=== PATIENT | female | born 1980 | race Caucasian/White ===

== ENCOUNTER 2017-10-18 04:26 | Emergency (ER) | payer OTHER ==
[2017-10-18] MEDS: HYDROCODONE/APAP (5/325) TAB PO (07:10)
== END 2017-10-18 07:43 | disposition home or self-care (01) ==
LOC: FTE 04:26
DX: S42.201A Unspecified fracture of upper end of right humerus, initial encounter for closed fracture (principal); E11.9 Type 2 diabetes mellitus without complications; W18.39XA Other fall on same level, initial encounter; Y92.9 Unspecified place or not applicable; Z79.4 Long term (current) use of insulin
CPT/HCPCS: 29105; 73060-RT; 73080-RT; 99284-25

== ENCOUNTER 2017-11-07 13:45 | Observation (INO) | payer OTHER ==
[2017-11-07] MEDS ORDERED: PROPOFOL 100 ML (17:06)
[2017-11-07] MEDS ORDERED: ROPIVACAINE 0.5 % 30 ML VIAL (17:07)
[2017-11-07] MEDS: POLYMYXIN/BACITRACIN 1L IRRIG (17:10)
[2017-11-07] MEDS ORDERED: LABETALOL HCL 20MG INJ (17:39)
[2017-11-07] MEDS ORDERED: CEFAZOLIN 1 GM INJ (17:48)
[2017-11-07] MEDS ORDERED: LIDOCAINE 2% (SDV) 5 ML INJ (17:48)
[2017-11-07] MEDS ORDERED: ROCURONIUM 50 MG INJ (17:48)
[2017-11-07] MEDS ORDERED: VANCOMYCIN 1 GM INJ (19:30)
[2017-11-07] MEDS ORDERED: DEXAMETHASONE 4 MG/ML 1 ML INJ (19:34)
[2017-11-07] MEDS ORDERED: ONDANSETRON 4 MG INJ (19:35)
[2017-11-07] MEDS ORDERED: SUGAMMADEX SODIUM 200 MG/2 ML VIAL IV (19:37)
[2017-11-07] MEDS ORDERED: KETOROLAC 30 MG INJ (19:40)
[2017-11-07] MEDS ORDERED: FENTAnyl 50 MCG/ML VIAL (19:47)
[2017-11-07] MEDS ORDERED: HYDROmorphONE (0.2 MG/ML) 10ML SYG IV ×2 (20:30)
[2017-11-07] MEDS ORDERED: KETOROLAC 30 MG INJ IV (20:30)
[2017-11-07] MEDS ORDERED: LABETALOL HCL 20MG INJ IV (20:30)
[2017-11-07] MEDS ORDERED: INSULIN ASPART [NOVOLOG] 3 ML PEN SC (20:30)
[2017-11-07] MEDS ORDERED: EPHEDrine SULFATE 50 MG/5 ML SYG IV (20:30)
[2017-11-07] MEDS ORDERED: MIDAZOLAM 1 MG/ML 2 ML INJ IV (20:30)
[2017-11-07] MEDS ORDERED: FENTAnyl 50 MCG/ML VIAL IV ×3 (20:30)
[2017-11-07] MEDS ORDERED: METOCLOPRAMIDE 10 MG INJ IV (20:30)
[2017-11-07] MEDS ORDERED: ALBUTEROL 0.083% (NEB) 2.5 MG/3 ML AMP HHN (20:30)
[2017-11-07] MEDS ORDERED: ONDANSETRON 4 MG INJ IV (20:30)
[2017-11-07] MEDS ORDERED: DIPHENHYDRAMINE 50 MG INJ IV (20:30)
[2017-11-07] MEDS ORDERED: MEPERIDINE 25 MG INJ IV (20:30)
[2017-11-07] MEDS ORDERED: hydrALAzine 20 MG INJ IV (20:30)
[2017-11-07] MEDS ORDERED: OXYCODONE/ACETAMINOPHEN (5/325) TAB PO (20:30)
[2017-11-07] MEDS: HYDROmorphONE (0.2 MG/ML) 10ML SYG IV (21:05)
[2017-11-07] MEDS: OXYCODONE/ACETAMINOPHEN (5/325) TAB PO (21:23)
[2017-11-08] MEDS ORDERED: ATENOLOL 25 MG TAB PO
[2017-11-08] MEDS ORDERED: ZOLPIDEM 5 MG TAB PO
[2017-11-08] MEDS ORDERED: ACCU-CHEK XX (02:00)
[2017-11-08] MEDS ORDERED: PANTOPRAZOLE (EC) 40 MG TAB PO (06:00)
[2017-11-08] MEDS ORDERED: INSULIN ASPART [NOVOLOG] 3 ML PEN SC (08:00)
[2017-11-08] MEDS ORDERED: INSULIN GLARGINE HUM REC ANLOG 80 UNIT SQ (21:00)
[2017-11-08] MEDS ORDERED: [UNRECOGNIZED DRUG - OTHER] SQ (21:00)
== END 2017-11-09 22:30 | disposition home or self-care (01) ==
LOC: SDS 13:45 → REC 22:30 → MS2 11-09 17:05 → SDS 13:45 → REC 11-09 17:47 → SDS 20:44 → REC 20:22
PROVIDERS: Orthopaedic Surgery Hand Surgery
DX: S42.301A Unspecified fracture of shaft of humerus, right arm, initial encounter for closed fracture (principal); G56.31 Lesion of radial nerve, right upper limb; X58.XXXA Exposure to other specified factors, initial encounter; Y93.9 Activity, unspecified; Y99.9 Unspecified external cause status; Y92.9 Unspecified place or not applicable
CPT/HCPCS: 24515; 73060-RT; 82962; 99217

== ENCOUNTER 2017-11-19 23:05 | Inpatient (IN) | payer OTHER ==
[2017-11-20] MEDS: ONDANSETRON 4 MG INJ IV (02:21)
[2017-11-20] MEDS: HYDROmorphONE 1 MG/ML SYG IV (02:22)
[2017-11-20] MEDS: SOD CHLORIDE 0.9% 1,000 ML IV ×3 (02:26→07:33)
[2017-11-20 02:40] LABS: ADD MAN DIFF? NO
[2017-11-20 02:42] LABS: WHITE BLOOD COUNT 6.8 10^3/ul (4.8-10.8)
[2017-11-20 02:42] LABS: BASOPHILS % 0.3 % (0.0-2.0); EOSINOPHILS # 0.2 10^3/ul (0.0-0.5); EOSINOPHILS % 2.2 % (0.0-7.0); HEMATOCRIT 34.4 % (37.0-47.0); HEMOGLOBIN 12.8 g/dl (12.0-16.0); LYMPHOCYTES # 2.8 10^3/ul (0.8-2.9); LYMPHOCYTES % 40.8 % (15.0-51.0); MEAN CORPUSCULAR HEMOGLOBIN 32.5 pg (29.0-33.0); MEAN CORPUSCULAR HGB CONC 37.2 g/dl (32.0-37.0); MEAN CORPUSCULAR VOLUME 87.3 fl (82.0-101.0); MEAN PLATELET VOLUME 9.3 fl (7.4-10.4); MONOCYTE # 0.3 10^3/ul (0.3-0.9); NEUTROPHIL # 3.6 10^3/ul (1.6-7.5); NEUTROPHILS % 52.1 % (39.0-77.0); PLATELET COUNT 307 10^3/UL (140-415); RED BLOOD COUNT 3.94 10^6/ul (4.20-5.40); RED CELL DISTRIBUTION WIDTH 14.5 % (11.5-14.5)
[2017-11-20 03:01] LABS: ALANINE AMINOTRANSFERASE 21 IU/L (13-69); ALBUMIN 3.6 g/dl (3.3-4.9); ALBUMIN/GLOBULIN RATIO 0.92; ALKALINE PHOSPHATASE 288 IU/L (42-121); ANION GAP 21 (8-16); ASPARTATE AMINO TRANSFERASE 23 IU/L (15-46); BILIRUBIN,INDIRECT 0.2 mg/dl (0-1.1); BILIRUBIN,TOTAL 0.2 mg/dl (0.2-1.3); BLOOD UREA NITROGEN 16 mg/dl (7-20); CALCIUM 9.2 mg/dl (8.4-10.2); CARBON DIOXIDE 20 mmol/L (21-31); CHLORIDE 100 mmol/L (97-110); CREATININE 0.54 mg/dl (0.44-1.00); LIPASE 37 U/L (23-300); POTASSIUM 4.6 mmol/L (3.5-5.1); SODIUM 136 mmol/L (135-144); TOTAL PROTEIN 7.5 g/dl (6.1-8.1)
[2017-11-20 03:10] LABS: LACTIC ACID 3.5 mmol/L (0.5-2.0)
[2017-11-20 03:10] LABS: GLUCOSE 422 mg/dl (70-220)
[2017-11-20 03:19] LABS: ADD UMIC YES; UR ASCORBIC ACID NEGATIVE (NEGATIVE); UR BACTERIA FEW /HPF (NONE SEEN); UR BILIRUBIN (Dip) NEGATIVE (NEGATIVE); UR BLOOD (Dip) 1+ mg/dL (NEGATIVE); UR CLARITY CLEAR (CLEAR); UR COLOR STRAW (YELLOW); UR GLUCOSE (Dip) 3+ mg/dL (NEGATIVE); UR KETONES (Dip) NEGATIVE (NEGATIVE); UR LEUKOCYTE ESTERASE (Dip) NEGATIVE Leu/ul (NEGATIVE); UR NITRITE (Dip) NEGATIVE (NEGATIVE); UR RBC 1 /HPF (0-5); UR SQUAMOUS EPITHELIAL CELL FEW /HPF (FEW); UR TOTAL PROTEIN (Dip) 2+ mg/dl (NEGATIVE); UR UROBILINOGEN (Dip) NEGATIVE (NEGATIVE); UR WBC 1 /HPF (0-5)
[2017-11-20] MEDS: SOD CHLORIDE 0.9% IV (03:49)
[2017-11-20 04:05] LABS: TROPONIN-I < 0.012 ng/ml (0.00-0.12)
[2017-11-20] MEDS: HYDROmorphONE 0.5 MG/0.5 ML SYG IV ×3 (04:12→13:50)
[2017-11-20 04:29] LABS: INR 0.95; PROTIME 12.8 Sec (11.9-14.9)
[2017-11-20 04:57] LABS: PARTIAL THROMBOPLASTIN TIME 28.3 Sec (25.0-35.0)
[2017-11-20 05:20] LABS: LACTIC ACID 3.1 mmol/L (0.5-2.0)
[2017-11-20] MEDS: VANCOMYCIN 1 GM (PMX) 250 ML IVPB (05:30)
[2017-11-20] MEDS ORDERED: VANCOMYCIN IV PER PHARMACY XX (06:00)
[2017-11-20] MEDS ORDERED: ACETAMINOPHEN 325 MG TAB PO (06:00)
[2017-11-20] MEDS ORDERED: ZOLPIDEM 5 MG TAB PO (06:00)
[2017-11-20] MEDS ORDERED: ONDANSETRON 4 MG INJ IV (06:00)
[2017-11-20] MEDS: PIPER-TAZO 3.375 GM IV (PMX) 100 ML IVPB ×3 (06:00→21:04)
[2017-11-20] MEDS ORDERED: HYDROCODONE/APAP (5/325) TAB PO (06:00)
[2017-11-20] MEDS ORDERED: NACL 0.9% 3 ML SYG IV (06:00)
[2017-11-20] MEDS ORDERED: morphine 4 MG/ML VIAL IV (06:00)
[2017-11-20] MEDS ORDERED: DEXTROSE 50% 50 ML SYRINGE IV ×2 (06:30)
[2017-11-20] MEDS ORDERED: GLUCOSE GEL 15 GRAM TUBE PO ×2 (06:30)
[2017-11-20] MEDS ORDERED: GLUCAGON 1 MG INJ IM (06:30)
[2017-11-20] MEDS ORDERED: GLUCOSE GEL 15 GRAM TUBE BUCCAL (06:30)
[2017-11-20] MEDS: INSULIN ASPART [NOVOLOG] 3 ML PEN SC ×6 (06:35→21:07)
[2017-11-20] MEDS ORDERED: LIDOCAINE 4% CR (06:53)
[2017-11-20] MEDS: LIDOCAINE 4% CR TOP (07:00)
[2017-11-20] MEDS: CEFEPIME 2GM/50 ML (PMX) 50 ML IVPB (07:32)
[2017-11-20] MEDS ORDERED: [UNRECOGNIZED DRUG - REMARK] XX (08:00)
[2017-11-20 08:25] LABS: LACTIC ACID 2.5 mmol/L (0.5-2.0)
[2017-11-20] MEDS: DIPHENHYDRAMINE 50 MG INJ IV (08:35)
[2017-11-20 12:20] LABS: ANION GAP 12 (8-16); BLOOD UREA NITROGEN 14 mg/dl (7-20); CALCIUM 8.9 mg/dl (8.4-10.2); CARBON DIOXIDE 25 mmol/L (21-31); CHLORIDE 104 mmol/L (97-110); GLUCOSE 356 mg/dl (70-220); POTASSIUM 4.5 mmol/L (3.5-5.1); SODIUM 136 mmol/L (135-144)
[2017-11-20] MEDS: VANCOMYCIN 750 MG in DEXTROSE 5% 150 ML IVPB ×2 (12:23→21:44)
[2017-11-20] MEDS: PANTOPRAZOLE (EC) 40 MG TAB PO (12:24)
[2017-11-20] MEDS: ATENOLOL 25 MG TAB PO (13:50)
[2017-11-20] MEDS: METHADONE 10 MG TAB PO ×2 (17:44→22:00)
[2017-11-20] MEDS ORDERED: INSULIN GLARGINE HUM REC ANLOG 80 UNIT SQ (21:00)
[2017-11-20] MEDS ORDERED: [UNRECOGNIZED DRUG - OTHER] SQ (21:00)
[2017-11-20] MEDS: HYDROmorphONE 2 MG TAB PO (21:03)
[2017-11-20] MEDS: INSULIN GLARGINE [LANtus] 3 ML PEN SC (21:08)
[2017-11-21] MEDS: HYDROCODONE/APAP (5/325) TAB PO ×2 (01:18→09:51)
[2017-11-21] MEDS: INSULIN ASPART [NOVOLOG] 3 ML PEN SC ×4 (01:23→09:23)
[2017-11-21] MEDS: ACCU-CHEK XX (02:00)
[2017-11-21] MEDS: PIPER-TAZO 3.375 GM IV (PMX) 100 ML IVPB ×2 (03:05→09:17)
[2017-11-21] MEDS: HYDROmorphONE 2 MG TAB PO (03:05)
[2017-11-21 03:52] LABS: VANCOMYCIN,TROUGH 12.2 ug/ml (10.0-20.0)
[2017-11-21] MEDS: VANCOMYCIN 750 MG in DEXTROSE 5% 150 ML IVPB (05:07)
[2017-11-21] MEDS: METHADONE 10 MG TAB PO (05:13)
[2017-11-21 05:56] LABS: ADD MAN DIFF? NO
[2017-11-21 05:58] LABS: BASOPHILS % 0.4 % (0.0-2.0); EOSINOPHILS # 0.2 10^3/ul (0.0-0.5); EOSINOPHILS % 2.9 % (0.0-7.0); HEMATOCRIT 30.8 % (37.0-47.0); HEMOGLOBIN 10.7 g/dl (12.0-16.0); LYMPHOCYTES # 2.1 10^3/ul (0.8-2.9); LYMPHOCYTES % 41.8 % (15.0-51.0); MEAN CORPUSCULAR HEMOGLOBIN 31.2 pg (29.0-33.0); MEAN CORPUSCULAR HGB CONC 34.7 g/dl (32.0-37.0); MEAN CORPUSCULAR VOLUME 89.8 fl (82.0-101.0); MEAN PLATELET VOLUME 9.2 fl (7.4-10.4); MONOCYTE # 0.3 10^3/ul (0.3-0.9); MONOCYTES % 4.9 % (0.0-11.0); NEUTROPHIL # 2.5 10^3/ul (1.6-7.5); NEUTROPHILS % 49.6 % (39.0-77.0); PLATELET COUNT 239 10^3/UL (140-415); RED BLOOD COUNT 3.43 10^6/ul (4.20-5.40); RED CELL DISTRIBUTION WIDTH 14.5 % (11.5-14.5)
[2017-11-21 05:58] LABS: WHITE BLOOD COUNT 5.1 10^3/ul (4.8-10.8)
[2017-11-21 06:52] LABS: ALANINE AMINOTRANSFERASE 22 IU/L (13-69); ALBUMIN/GLOBULIN RATIO 0.83; ALKALINE PHOSPHATASE 191 IU/L (42-121); ANION GAP 12 (8-16); ASPARTATE AMINO TRANSFERASE 20 IU/L (15-46); BILIRUBIN,INDIRECT 0.2 mg/dl (0-1.1); BILIRUBIN,TOTAL 0.2 mg/dl (0.2-1.3); BLOOD UREA NITROGEN 14 mg/dl (7-20); CALCIUM 8.8 mg/dl (8.4-10.2); CARBON DIOXIDE 24 mmol/L (21-31); CHLORIDE 103 mmol/L (97-110); CREATININE 0.58 mg/dl (0.44-1.00); GLUCOSE 148 mg/dl (70-220); SODIUM 135 mmol/L (135-144); TOTAL PROTEIN 6.6 g/dl (6.1-8.1)
[2017-11-21] MEDS: PANTOPRAZOLE (EC) 40 MG TAB PO (09:17)
[2017-11-21] MEDS ORDERED: INSULIN ASPART [NOVOLOG] 3 ML PEN SC (11:30)
== END 2017-11-21 12:02 | disposition home or self-care (01) | DRG 862 ==
LOC: FTE 23:05 → MS3 11-20 05:24 → PP2 11-20 17:16
PROVIDERS: Internal Medicine
DX: T81.4XXA Infection following a procedure, initial encounter (principal); R65.20 Severe sepsis without septic shock; M79.601 Pain in right arm; Z76.5 Malingerer [conscious simulation]; E11.65 Type 2 diabetes mellitus with hyperglycemia; Z79.4 Long term (current) use of insulin
CPT/HCPCS: 36415; 71045; 73060-RT; 80048; 80053; 80202; 81001; 82962; 83605; 83690; 84484; 85025; 85610; 85730; 87040; 87086; 93005; 96361; 96374; 96375; 96376; 99285-25

== ENCOUNTER 2018-11-14 02:46 | Emergency (ER) | payer OTHER ==
[2018-11-14 04:27] LABS: ADD UMIC YES; UR ASCORBIC ACID NEGATIVE (NEGATIVE); UR BILIRUBIN (Dip) NEGATIVE (NEGATIVE); UR BLOOD (Dip) NEGATIVE (NEGATIVE); UR CLARITY CLEAR (CLEAR); UR COLOR STRAW (YELLOW); UR GLUCOSE (Dip) 3+ mg/dL (NEGATIVE); UR KETONES (Dip) NEGATIVE (NEGATIVE); UR LEUKOCYTE ESTERASE (Dip) NEGATIVE Leu/ul (NEGATIVE); UR NITRITE (Dip) NEGATIVE (NEGATIVE); UR RBC 0 /HPF (0-5); UR SPECIFIC GRAVITY (Dip) 1.017 (1.003-1.030); UR TOTAL PROTEIN (Dip) 2+ mg/dl (NEGATIVE); UR UROBILINOGEN (Dip) NEGATIVE (NEGATIVE); UR WBC 0 /HPF (0-5)
[2018-11-14 04:50] LABS: ADD MAN DIFF? NO
[2018-11-14 04:52] LABS: BASOPHILS % 0.3 % (0.0-2.0); EOSINOPHILS # 0.3 10^3/ul (0.0-0.5); EOSINOPHILS % 3.2 % (0.0-7.0); HEMATOCRIT 37.8 % (37.0-47.0); HEMOGLOBIN 13.2 g/dl (12.0-16.0); LYMPHOCYTES # 3.7 10^3/ul (0.8-2.9); LYMPHOCYTES % 41.9 % (15.0-51.0); MEAN CORPUSCULAR HEMOGLOBIN 29.7 pg (29.0-33.0); MEAN CORPUSCULAR HGB CONC 34.9 g/dl (32.0-37.0); MEAN CORPUSCULAR VOLUME 85.1 fl (82.0-101.0); MEAN PLATELET VOLUME 9.7 fl (7.4-10.4); MONOCYTE # 0.4 10^3/ul (0.3-0.9); MONOCYTES % 4.2 % (0.0-11.0); NEUTROPHIL # 4.4 10^3/ul (1.6-7.5); NEUTROPHILS % 49.2 % (39.0-77.0); PLATELET COUNT 200 10^3/UL (140-415); RED BLOOD COUNT 4.44 10^6/ul (4.20-5.40); RED CELL DISTRIBUTION WIDTH 13.1 % (11.5-14.5)
[2018-11-14 04:52] LABS: WHITE BLOOD COUNT 8.8 10^3/ul (4.8-10.8)
[2018-11-14] MEDS: SOD CHLORIDE 0.9% 1,000 ML IV (05:00)
[2018-11-14] MEDS: DIPHENHYDRAMINE 50 MG INJ IV ×2 (05:01→06:42)
[2018-11-14] MEDS: HYDROmorphONE 2 MG/ML SYG IV ×2 (05:01→06:41)
[2018-11-14] MEDS: ONDANSETRON 4 MG INJ IV (05:01)
[2018-11-14 05:21] LABS: ALANINE AMINOTRANSFERASE 38 IU/L (13-69); ALBUMIN 3.5 g/dl (3.3-4.9); ALBUMIN/GLOBULIN RATIO 1.25; ALKALINE PHOSPHATASE 119 IU/L (42-121); AMYLASE 71 U/L (11-123); ANION GAP 11 (5-13); ASPARTATE AMINO TRANSFERASE 29 IU/L (15-46); BILIRUBIN,INDIRECT 0.2 mg/dl (0-1.1); BILIRUBIN,TOTAL 0.2 mg/dl (0.2-1.3); BLOOD UREA NITROGEN 24 mg/dl (7-20); CALCIUM 8.9 mg/dl (8.4-10.2); CARBON DIOXIDE 23 mmol/L (21-31); CHLORIDE 103 mmol/L (97-110); CREATININE 0.52 mg/dl (0.44-1.00); Estimated GFR > 60 mL/min (>60); GLUCOSE 272 mg/dl (70-220); LIPASE 97 U/L (23-300); POTASSIUM 4.2 mmol/L (3.5-5.1); SODIUM 137 mmol/L (135-144); TOTAL PROTEIN 6.3 g/dl (6.1-8.1)
[2018-11-14 06:14] LABS: INR 0.82; PROTIME 11.4 Sec (11.9-14.9); PT RATIO 0.9
[2018-11-14 06:15] LABS: PARTIAL THROMBOPLASTIN TIME 24.5 Sec (23.0-35.0)
[2018-11-14 06:29] LABS: TROPONIN-I < 0.012 ng/ml (0.000-0.120)
[2018-11-14] MEDS: IOHEXOL 100 ML (08:48)
[2018-11-14] MEDS: SOD CHLORIDE 0.9% 100 ML (08:48)
[2018-11-14] MEDS: KETOROLAC 30 MG INJ IV (09:01)
== END 2018-11-14 09:42 | disposition home or self-care (01) ==
LOC: FTE 09:42
DX: R10.9 Unspecified abdominal pain (principal); E11.9 Type 2 diabetes mellitus without complications; Z79.4 Long term (current) use of insulin
CPT/HCPCS: 71046; 71275; 74176; 76856; 80053; 81001; 81025; 82150; 83690; 84484; 85025; 85610; 85730; 87400; 93005; 96361; 96374; 96375; 96376; 99285-25

== ENCOUNTER 2019-02-25 04:53 | Inpatient (IN) | payer OTHER ==
[2019-02-25 05:25] LABS: ADD MAN DIFF? NO
[2019-02-25] MEDS: SOD CHLORIDE 0.9% 860 ML IV (05:25)
[2019-02-25 05:28] LABS: WHITE BLOOD COUNT 16.4 10^3/ul (4.8-10.8)
[2019-02-25 05:28] LABS: BASOPHILS % 0.2 % (0.0-2.0); EOSINOPHILS % 0.2 % (0.0-7.0); HEMATOCRIT 43.8 % (37.0-47.0); HEMOGLOBIN 15.7 g/dl (12.0-16.0); LYMPHOCYTES # 4.3 10^3/ul (0.8-2.9); LYMPHOCYTES % 26.3 % (15.0-51.0); MEAN CORPUSCULAR HEMOGLOBIN 31.7 pg (29.0-33.0); MEAN CORPUSCULAR HGB CONC 35.8 g/dl (32.0-37.0); MEAN CORPUSCULAR VOLUME 88.3 fl (82.0-101.0); MEAN PLATELET VOLUME 9.2 fl (7.4-10.4); MONOCYTE # 0.7 10^3/ul (0.3-0.9); MONOCYTES % 4.2 % (0.0-11.0); NEUTROPHIL # 11.1 10^3/ul (1.6-7.5); NEUTROPHILS % 68.1 % (39.0-77.0); PLATELET COUNT 403 10^3/UL (140-415); RED BLOOD COUNT 4.96 10^6/ul (4.20-5.40); RED CELL DISTRIBUTION WIDTH 13.6 % (11.5-14.5)
[2019-02-25] MEDS: HYDROmorphONE 1 MG/ML SYG IV (05:31)
[2019-02-25] MEDS: ONDANSETRON 4 MG INJ IV ×4 (05:31→21:42)
[2019-02-25 05:48] LABS: ALANINE AMINOTRANSFERASE 25 IU/L (13-69); ALBUMIN 3.3 g/dl (3.3-4.9); ALBUMIN/GLOBULIN RATIO 0.78; ALKALINE PHOSPHATASE 159 IU/L (42-121); ASPARTATE AMINO TRANSFERASE 22 IU/L (15-46); BILIRUBIN,INDIRECT 0.4 mg/dl (0-1.1); BILIRUBIN,TOTAL 0.4 mg/dl (0.2-1.3); BLOOD UREA NITROGEN 24 mg/dl (7-20); CALCIUM 8.2 mg/dl (8.4-10.2); CHLORIDE 100 mmol/L (97-110); Estimated GFR 56 mL/min (>60); MAGNESIUM 1.9 mg/dl (1.7-2.5); PHOSPHORUS 6.8 mg/dl (2.5-4.9); POTASSIUM 4.4 mmol/L (3.5-5.1); SODIUM 133 mmol/L (135-144); TOTAL PROTEIN 7.5 g/dl (6.1-8.1)
[2019-02-25 05:57] LABS: ANION GAP 28 (5-13)
[2019-02-25 05:58] LABS: CARBON DIOXIDE < 5 mmol/L (21-31); GLUCOSE 624 mg/dl (70-220)
[2019-02-25] MEDS ORDERED: SOD CHLORIDE 0.9% 1,000 ML IV (06:01)
[2019-02-25] MEDS ORDERED: NS + KCL 40 MEQ 1,000 ML IV (06:01)
[2019-02-25] MEDS ORDERED: D10/0.45% NACL + KCL 40 MEQ 1,000 ML IV (06:01)
[2019-02-25 06:07] LABS: MODE NASAL CANNULA; MetHgb Venous 0.1 %; Sample Type Blood venous; Site VENOUS LINE; Venous COHb 0.3 %; Venous Fraction OxyHgb 58.1 %; Venous Oxygen Sat 58.3 mmHG (55.0-75.0); Venous Total Hemglobin 13.4 g/dl
[2019-02-25] MEDS: LACTATED RINGER'S 860 ML IV (06:11)
[2019-02-25 06:15] LABS: ADD UMIC YES; UR ASCORBIC ACID NEGATIVE (NEGATIVE); UR BILIRUBIN (Dip) NEGATIVE (NEGATIVE); UR BLOOD (Dip) 1+ mg/dL (NEGATIVE); UR CLARITY CLEAR (CLEAR); UR COLOR COLORLESS (YELLOW); UR GLUCOSE (Dip) 3+ mg/dL (NEGATIVE); UR KETONES (Dip) 2+ mg/dL (NEGATIVE); UR LEUKOCYTE ESTERASE (Dip) NEGATIVE Leu/ul (NEGATIVE); UR NITRITE (Dip) NEGATIVE (NEGATIVE); UR RBC 1 /HPF (0-5); UR SPECIFIC GRAVITY (Dip) 1.017 (1.003-1.030); UR TOTAL PROTEIN (Dip) 1+ mg/dl (NEGATIVE); UR UROBILINOGEN (Dip) NEGATIVE (NEGATIVE); UR WBC 1 /HPF (0-5)
[2019-02-25] MEDS ORDERED: DEXTROSE 50% 50 ML SYRINGE IV ×4 (06:30→20:00)
[2019-02-25] MEDS ORDERED: LIDOCAINE 1% (MDV) 20 ML INJ (06:43)
[2019-02-25] MEDS ORDERED: LIDOCAINE 1% (MPF) 30 ML INJ INJ (07:00)
[2019-02-25] MEDS: HYDROmorphONE 2 MG/ML SYG IV (07:16)
[2019-02-25] MEDS ORDERED: PANTOPRAZOLE 40 MG INJ IV (07:30)
[2019-02-25] MEDS ORDERED: ACETAMINOPHEN 650MG/20.3ML CUP PO (07:30)
[2019-02-25] MEDS: INSULIN REGULAR, HUMAN 100 UNIT in SOD CHLORIDE 0.9% 100 ML IV ×2 (07:51→19:00)
[2019-02-25] MEDS: NS + KCL 30 MEQ 1,000 ML IV ×3 (07:53→20:09)
[2019-02-25] MEDS: NA BICARBONATE 8.4% 50 ML SYG IV (07:57)
[2019-02-25] MEDS: PANTOPRAZOLE 40 MG INJ IV ×2 (07:57→18:53)
[2019-02-25 09:23] LABS: HEMOGLOBIN A1C 12.7 % (0-5.9)
[2019-02-25 09:26] LABS: BLOOD UREA NITROGEN 23 mg/dl (7-20); CALCIUM 7.8 mg/dl (8.4-10.2); CHLORIDE 108 mmol/L (97-110); CREATININE 0.94 mg/dl (0.44-1.00); Estimated GFR > 60 mL/min (>60); MAGNESIUM 1.9 mg/dl (1.7-2.5); PHOSPHORUS 4.7 mg/dl (2.5-4.9); SODIUM 137 mmol/L (135-144)
[2019-02-25 09:28] LABS: MODE NASAL CANNULA; MetHgb Venous 0.2 %; Sample Type Blood venous; Site VENOUS LINE; Venous COHb 0.2 %; Venous Oxygen Sat 69.3 mmHG (55.0-75.0); Venous Total Hemglobin 12.9 g/dl
[2019-02-25 09:40] LABS: ETHANOL < 10.0 mg/dl (0-0)
[2019-02-25 09:40] LABS: ANION GAP 24 (5-13)
[2019-02-25 09:42] LABS: CARBON DIOXIDE < 5 mmol/L (21-31); GLUCOSE 492 mg/dl (70-220)
[2019-02-25 10:00] LABS: ADD UMIC YES; UR ASCORBIC ACID NEGATIVE (NEGATIVE); UR BILIRUBIN (Dip) NEGATIVE (NEGATIVE); UR BLOOD (Dip) 1+ mg/dL (NEGATIVE); UR CLARITY CLEAR (CLEAR); UR COLOR COLORLESS (YELLOW); UR GLUCOSE (Dip) 3+ mg/dL (NEGATIVE); UR KETONES (Dip) 2+ mg/dL (NEGATIVE); UR LEUKOCYTE ESTERASE (Dip) NEGATIVE Leu/ul (NEGATIVE); UR NITRITE (Dip) NEGATIVE (NEGATIVE); UR RBC 0 /HPF (0-5); UR SPECIFIC GRAVITY (Dip) 1.016 (1.003-1.030); UR TOTAL PROTEIN (Dip) 1+ mg/dl (NEGATIVE); UR UROBILINOGEN (Dip) NEGATIVE (NEGATIVE); UR WBC 1 /HPF (0-5)
[2019-02-25 10:03] LABS: LIPASE 23 U/L (23-300)
[2019-02-25] MEDS: HYDROmorphONE 0.5 MG/0.5 ML SYG IV ×5 (10:14→23:48)
[2019-02-25 10:45] LABS: AMPHETAMINE/METHAMPHETAMINE NEGATIVE (NEGATIVE); BARBITURATES POSITIVE (NEGATIVE); BENZODIAZEPINES NEGATIVE (NEGATIVE); CANNABINOIDS NEGATIVE (NEGATIVE); COCAINE NEGATIVE (NEGATIVE); OPIATES NEGATIVE (NEGATIVE)
[2019-02-25 11:33] LABS: ANION GAP 21 (5-13); BLOOD UREA NITROGEN 23 mg/dl (7-20); CALCIUM 7.6 mg/dl (8.4-10.2); CHLORIDE 110 mmol/L (97-110); CREATININE 0.92 mg/dl (0.44-1.00); Estimated GFR > 60 mL/min (>60); GLUCOSE 347 mg/dl (70-220); MAGNESIUM 1.9 mg/dl (1.7-2.5); PHOSPHORUS 3.5 mg/dl (2.5-4.9); POTASSIUM 4.3 mmol/L (3.5-5.1); SODIUM 137 mmol/L (135-144)
[2019-02-25 11:42] LABS: CARBON DIOXIDE 6 mmol/L (21-31)
[2019-02-25] MEDS: D10/0.45% NACL + KCL 30 MEQ 1,000 ML IV ×2 (12:05→19:31)
[2019-02-25 16:21] LABS: ANION GAP 12 (5-13); BLOOD UREA NITROGEN 17 mg/dl (7-20); CALCIUM 6.8 mg/dl (8.4-10.2); CARBON DIOXIDE 12 mmol/L (21-31); CHLORIDE 114 mmol/L (97-110); CREATININE 0.65 mg/dl (0.44-1.00); Estimated GFR > 60 mL/min (>60); GLUCOSE 228 mg/dl (70-220); MAGNESIUM 1.7 mg/dl (1.7-2.5); PHOSPHORUS 2.3 mg/dl (2.5-4.9); POTASSIUM 4.1 mmol/L (3.5-5.1); SODIUM 138 mmol/L (135-144)
[2019-02-25 18:42] LABS: ANION GAP 10 (5-13); BLOOD UREA NITROGEN 17 mg/dl (7-20); CALCIUM 7.2 mg/dl (8.4-10.2); CARBON DIOXIDE 14 mmol/L (21-31); CHLORIDE 112 mmol/L (97-110); CREATININE 0.68 mg/dl (0.44-1.00); Estimated GFR > 60 mL/min (>60); GLUCOSE 239 mg/dl (70-220); MAGNESIUM 1.8 mg/dl (1.7-2.5); PHOSPHORUS 2.1 mg/dl (2.5-4.9); POTASSIUM 4.3 mmol/L (3.5-5.1); SODIUM 136 mmol/L (135-144)
[2019-02-25] MEDS: MAGNESIUM SULFATE 2 GM/50 ML 50 ML IVPB (18:53)
[2019-02-25] MEDS: DEXTROSE 10%/0.45% NACL 1,000 ML IV (19:29)
[2019-02-25] MEDS: ACCU-CHEK XX ×4 (20:00→23:00)
[2019-02-25] MEDS: FISH OIL 1,000 MG CAP PO (21:00)
[2019-02-25] MEDS: INSULIN GLARGINE [LANTus] (100 UNITS/ML) SYG SC (22:19)
[2019-02-25] MEDS: D5W-0.45 NACL + KCL 20 MEQ 1,000 ML IV (23:55)
[2019-02-26] MEDS: ACCU-CHEK XX ×24 (01:00→23:00)
[2019-02-26] MEDS ORDERED: ACCU-CHEK XX (02:00)
[2019-02-26] MEDS ORDERED: GLUCOSE GEL 15 GRAM TUBE BUCCAL (02:00)
[2019-02-26] MEDS ORDERED: DEXTROSE 50% 50 ML SYRINGE IV ×2 (02:00)
[2019-02-26] MEDS ORDERED: GLUCAGON 1 MG INJ IM (02:00)
[2019-02-26] MEDS ORDERED: GLUCOSE GEL 15 GRAM TUBE PO ×2 (02:00)
[2019-02-26] MEDS: HYDROmorphONE 0.5 MG/0.5 ML SYG IV ×2 (03:45→08:17)
[2019-02-26] MEDS: INSULIN ASPART [NOVOLOG] 3 ML PEN SC (05:00)
[2019-02-26 06:11] LABS: ADD UMIC YES; UR ASCORBIC ACID NEGATIVE (NEGATIVE); UR BILIRUBIN (Dip) NEGATIVE (NEGATIVE); UR BLOOD (Dip) 1+ mg/dL (NEGATIVE); UR CLARITY CLEAR (CLEAR); UR COLOR YELLOW (YELLOW); UR GLUCOSE (Dip) 3+ mg/dL (NEGATIVE); UR KETONES (Dip) 1+ mg/dL (NEGATIVE); UR LEUKOCYTE ESTERASE (Dip) NEGATIVE Leu/ul (NEGATIVE); UR NITRITE (Dip) NEGATIVE (NEGATIVE); UR RBC 0 /HPF (0-5); UR SPECIFIC GRAVITY (Dip) 1.014 (1.003-1.030); UR SQUAMOUS EPITHELIAL CELL FEW /HPF (FEW); UR TOTAL PROTEIN (Dip) 2+ mg/dl (NEGATIVE); UR UROBILINOGEN (Dip) NEGATIVE (NEGATIVE); UR WBC 1 /HPF (0-5)
[2019-02-26 06:22] LABS: LIPASE 19 U/L (23-300)
[2019-02-26 06:22] LABS: AMYLASE 48 U/L (11-123)
[2019-02-26 06:26] LABS: CHOLESTEROL 506 mg/dl (100-200)
[2019-02-26 06:27] LABS: ANION GAP 14 (5-13); BLOOD UREA NITROGEN 10 mg/dl (7-20); CALCIUM 7.5 mg/dl (8.4-10.2); CARBON DIOXIDE 12 mmol/L (21-31); CHLORIDE 108 mmol/L (97-110); CREATININE 0.62 mg/dl (0.44-1.00); Estimated GFR > 60 mL/min (>60); GLUCOSE 334 mg/dl (70-220); MAGNESIUM 1.8 mg/dl (1.7-2.5); PHOSPHORUS 2.3 mg/dl (2.5-4.9); POTASSIUM 5.1 mmol/L (3.5-5.1); SODIUM 134 mmol/L (135-144)
[2019-02-26] MEDS: PANTOPRAZOLE 40 MG INJ IV ×2 (06:52→20:09)
[2019-02-26] MEDS: FENOFIBRATE 145 MG TAB PO (08:27)
[2019-02-26] MEDS: FISH OIL 1,000 MG CAP PO ×2 (08:28→20:43)
[2019-02-26 08:34] LABS: CHOL/HDL RATIO 13.3 RATIO; HDL CHOLESTEROL 38 mg/dl (34-82)
[2019-02-26] MEDS: INSULIN HUMAN REGULAR 100 UNIT in SOD CHLORIDE 0.9% 99 ML IV ×2 (08:42→20:39)
[2019-02-26 08:55] LABS: TRIGLYCERIDES > 1575 mg/dl (0-149)
[2019-02-26] MEDS ORDERED: INSULIN GLARGINE [LANTus] (100 UNITS/ML) SYG SC ×2 (09:00→20:00)
[2019-02-26] MEDS ORDERED: ALBUTEROL HFA 8 GM INHALER INH (09:30)
[2019-02-26] MEDS: AMLODIPINE 5 MG TAB PO (10:00)
[2019-02-26] MEDS ORDERED: FENOFIBRATE 145 MG TAB PO (10:00)
[2019-02-26 10:17] LABS: ADD MAN DIFF? NO
[2019-02-26 10:21] LABS: WHITE BLOOD COUNT 7.3 10^3/ul (4.8-10.8)
[2019-02-26 10:21] LABS: BASOPHILS % 0.1 % (0.0-2.0); EOSINOPHILS # 0.1 10^3/ul (0.0-0.5); EOSINOPHILS % 0.8 % (0.0-7.0); HEMOGLOBIN 12.7 g/dl (12.0-16.0); LYMPHOCYTES # 2.3 10^3/ul (0.8-2.9); LYMPHOCYTES % 31.2 % (15.0-51.0); MEAN CORPUSCULAR HEMOGLOBIN 31.2 pg (29.0-33.0); MEAN CORPUSCULAR HGB CONC 35.3 g/dl (32.0-37.0); MEAN CORPUSCULAR VOLUME 88.5 fl (82.0-101.0); MEAN PLATELET VOLUME 9.4 fl (7.4-10.4); MONOCYTE # 0.4 10^3/ul (0.3-0.9); MONOCYTES % 5.7 % (0.0-11.0); NEUTROPHIL # 4.5 10^3/ul (1.6-7.5); NEUTROPHILS % 61.8 % (39.0-77.0); PLATELET COUNT 224 10^3/UL (140-415); RED BLOOD COUNT 4.07 10^6/ul (4.20-5.40); RED CELL DISTRIBUTION WIDTH 13.9 % (11.5-14.5)
[2019-02-26] MEDS: D5W-0.45 NACL + KCL 20 MEQ 1,000 ML IV (12:03)
[2019-02-26] MEDS: HYDROmorphONE 1 MG/ML SYG IV ×3 (12:03→20:00)
[2019-02-26 13:28] LABS: TROPONIN-I < 0.012 ng/ml (0.000-0.120)
[2019-02-26] MEDS: SUCRALFATE (100 MG/ML) 10ML CUP PO ×2 (17:00→20:42)
[2019-02-26] MEDS: metFORMIN 500 MG TAB PO (17:41)
[2019-02-26] MEDS: ONDANSETRON 4 MG INJ IV (19:18)
[2019-02-26] MEDS: INSULIN GLARGINE [LANTus] (100 UNITS/ML) SYG SC (20:01)
[2019-02-26] MEDS: ATORVASTATIN 80 MG TAB PO (20:43)
[2019-02-26] MEDS: MONTELUKAST 10 MG TAB PO (20:43)
[2019-02-27] MEDS: HYDROmorphONE 1 MG/ML SYG IV ×6 (00:15→20:31)
[2019-02-27] MEDS: ACCU-CHEK XX ×19 (01:00→21:06)
[2019-02-27] MEDS: D5W-0.45 NACL + KCL 20 MEQ 1,000 ML IV ×2 (02:13→08:41)
[2019-02-27] MEDS ORDERED: LISINOPRIL 10 MG TAB PO (05:30)
[2019-02-27] MEDS: PANTOPRAZOLE 40 MG INJ IV (06:12)
[2019-02-27] MEDS: LISINOPRIL 5 MG TAB PO (06:14)
[2019-02-27] MEDS: SUCRALFATE (100 MG/ML) 10ML CUP PO ×4 (08:39→20:35)
[2019-02-27] MEDS: AMLODIPINE 5 MG TAB PO (08:40)
[2019-02-27] MEDS: metFORMIN 500 MG TAB PO ×2 (08:40→18:07)
[2019-02-27] MEDS: FENOFIBRATE 145 MG TAB PO (08:40)
[2019-02-27] MEDS: FISH OIL 1,000 MG CAP PO ×3 (08:40→20:53)
[2019-02-27] MEDS: INSULIN HUMAN REGULAR 100 UNIT in SOD CHLORIDE 0.9% 99 ML IV (09:08)
[2019-02-27 09:15] LABS: ADD MAN DIFF? NO
[2019-02-27 09:19] LABS: WHITE BLOOD COUNT 5.3 10^3/ul (4.8-10.8)
[2019-02-27 09:19] LABS: BASOPHILS % 0.2 % (0.0-2.0); EOSINOPHILS # 0.1 10^3/ul (0.0-0.5); EOSINOPHILS % 1.3 % (0.0-7.0); HEMATOCRIT 36.1 % (37.0-47.0); LYMPHOCYTES # 1.9 10^3/ul (0.8-2.9); LYMPHOCYTES % 36.2 % (15.0-51.0); MEAN CORPUSCULAR HEMOGLOBIN 30.1 pg (29.0-33.0); MEAN CORPUSCULAR VOLUME 83.6 fl (82.0-101.0); MEAN PLATELET VOLUME 9.4 fl (7.4-10.4); MONOCYTE # 0.3 10^3/ul (0.3-0.9); MONOCYTES % 6.4 % (0.0-11.0); NEUTROPHIL # 2.9 10^3/ul (1.6-7.5); NEUTROPHILS % 55.3 % (39.0-77.0); PLATELET COUNT 206 10^3/UL (140-415); RED BLOOD COUNT 4.32 10^6/ul (4.20-5.40)
[2019-02-27 09:53] LABS: ANION GAP 9 (5-13); BLOOD UREA NITROGEN 5 mg/dl (7-20); CALCIUM 7.8 mg/dl (8.4-10.2); CARBON DIOXIDE 16 mmol/L (21-31); CHLORIDE 108 mmol/L (97-110); CREATININE 0.37 mg/dl (0.44-1.00); Estimated GFR > 60 mL/min (>60); GLUCOSE 262 mg/dl (70-220); MAGNESIUM 1.5 mg/dl (1.7-2.5); PHOSPHORUS 2.6 mg/dl (2.5-4.9); POTASSIUM 3.6 mmol/L (3.5-5.1); SODIUM 133 mmol/L (135-144)
[2019-02-27 10:48] LABS: TRIGLYCERIDES > 1575 mg/dl (0-149)
[2019-02-27] MEDS: CALCIUM CARBONATE 500 MG CHEW TAB PO ×2 (12:59→18:07)
[2019-02-27] MEDS: LACTATED RINGER'S 1,000 ML IV (12:59)
[2019-02-27] MEDS: INSULIN GLARGINE [LANTus] (100 UNITS/ML) SYG SC ×2 (13:39→20:29)
[2019-02-27 13:41] LABS: C-PEPTIDE 0.46 ng/mL (0.80-3.85)
[2019-02-27] MEDS ORDERED: metFORMIN 500 MG TAB PO (17:35)
[2019-02-27] MEDS: NATEGLINIDE 60 MG TAB PO (18:07)
[2019-02-27] MEDS: PANTOPRAZOLE (EC) 40 MG TAB PO (18:07)
[2019-02-27] MEDS: MONTELUKAST 10 MG TAB PO (20:34)
[2019-02-27] MEDS: ATORVASTATIN 80 MG TAB PO (20:34)
[2019-02-27] MEDS: INSULIN ASPART [NOVOLOG] 3 ML PEN SC ×3 (20:49→21:10)
[2019-02-27] MEDS ORDERED: INSULIN LISPRO 100 UNIT/ML VIAL SC (21:00)
[2019-02-27] MEDS: INSULIN REGULAR, HUMAN 100 UNIT/1 ML 3ML VIAL SC (23:27)
[2019-02-28] MEDS: HYDROmorphONE 1 MG/ML SYG IV ×5 (00:21→16:47)
[2019-02-28] MEDS: ACCU-CHEK XX (02:00)
[2019-02-28] MEDS: LACTATED RINGER'S 1,000 ML IV ×2 (02:50→19:01)
[2019-02-28] MEDS ORDERED: hydrALAzine 20 MG INJ IV (03:00)
[2019-02-28] MEDS: ONDANSETRON 4 MG INJ IV (04:23)
[2019-02-28 04:59] LABS: ADD MAN DIFF? NO
[2019-02-28 05:03] LABS: EOSINOPHILS # 0.1 10^3/ul (0.0-0.5); EOSINOPHILS % 1.4 % (0.0-7.0); HEMATOCRIT 36.1 % (37.0-47.0); HEMOGLOBIN 12.7 g/dl (12.0-16.0); LYMPHOCYTES # 2.3 10^3/ul (0.8-2.9); LYMPHOCYTES % 41.7 % (15.0-51.0); MEAN CORPUSCULAR HEMOGLOBIN 29.5 pg (29.0-33.0); MEAN CORPUSCULAR HGB CONC 35.2 g/dl (32.0-37.0); MEAN PLATELET VOLUME 9.6 fl (7.4-10.4); MONOCYTE # 0.4 10^3/ul (0.3-0.9); MONOCYTES % 6.5 % (0.0-11.0); NEUTROPHIL # 2.8 10^3/ul (1.6-7.5); PLATELET COUNT 214 10^3/UL (140-415)
[2019-02-28 05:03] LABS: WHITE BLOOD COUNT 5.6 10^3/ul (4.8-10.8)
[2019-02-28 05:30] LABS: ALANINE AMINOTRANSFERASE 17 IU/L (13-69); ALBUMIN 3.1 g/dl (3.3-4.9); ALBUMIN/GLOBULIN RATIO 0.96; ALKALINE PHOSPHATASE 118 IU/L (42-121); ANION GAP 8 (5-13); ASPARTATE AMINO TRANSFERASE 23 IU/L (15-46); BILIRUBIN,INDIRECT 0.5 mg/dl (0-1.1); BILIRUBIN,TOTAL 0.5 mg/dl (0.2-1.3); BLOOD UREA NITROGEN 8 mg/dl (7-20); CALCIUM 8.5 mg/dl (8.4-10.2); CARBON DIOXIDE 23 mmol/L (21-31); CHLORIDE 104 mmol/L (97-110); CREATININE 0.47 mg/dl (0.44-1.00); Estimated GFR > 60 mL/min (>60); GLUCOSE 196 mg/dl (70-220); POTASSIUM 3.5 mmol/L (3.5-5.1); SODIUM 135 mmol/L (135-144); TOTAL PROTEIN 6.3 g/dl (6.1-8.1)
[2019-02-28] MEDS: PANTOPRAZOLE (EC) 40 MG TAB PO ×2 (06:10→19:02)
[2019-02-28 06:19] LABS: MAGNESIUM 1.2 mg/dl (1.7-2.5)
[2019-02-28 06:50] LABS: HDL CHOLESTEROL 30 mg/dl (34-82)
[2019-02-28] MEDS: NATEGLINIDE 60 MG TAB PO ×3 (07:05→16:39)
[2019-02-28 07:31] LABS: CHOL/HDL RATIO 17.7 RATIO; TRIGLYCERIDES > 1575 mg/dl (0-149)
[2019-02-28 07:31] LABS: CHOLESTEROL 533 mg/dl (100-200)
[2019-02-28] MEDS: metFORMIN 500 MG TAB PO ×2 (07:35→16:40)
[2019-02-28] MEDS: SUCRALFATE (100 MG/ML) 10ML CUP PO ×4 (08:36→20:15)
[2019-02-28] MEDS: CALCIUM CARBONATE 500 MG CHEW TAB PO ×3 (08:36→19:02)
[2019-02-28] MEDS: AMLODIPINE 5 MG TAB PO (08:37)
[2019-02-28] MEDS: FENOFIBRATE 145 MG TAB PO (08:37)
[2019-02-28] MEDS: LISINOPRIL 5 MG TAB PO (08:38)
[2019-02-28] MEDS: FISH OIL 1,000 MG CAP PO ×2 (08:39→20:36)
[2019-02-28] MEDS: INSULIN REGULAR, HUMAN 100 UNIT/1 ML 3ML VIAL SC ×4 (08:48→20:19)
[2019-02-28] MEDS ORDERED: LISINOPRIL 10 MG TAB PO (09:00)
[2019-02-28] MEDS: EZETIMIBE 10 MG TAB PO (16:49)
[2019-02-28] MEDS: MAGNESIUM SULFATE 4 GM/100 ML 100 ML IVPB (16:51)
[2019-02-28] MEDS: PROPOFOL 40 ML (17:06)
[2019-02-28] MEDS: LIDOCAINE 2% (SDV) 5 ML INJ (17:06)
[2019-02-28] MEDS: MIDAZOLAM 1 MG/ML 2 ML INJ (17:07)
[2019-02-28] MEDS ORDERED: ONDANSETRON 4 MG INJ IV (18:00)
[2019-02-28] MEDS: PHENYLephrine (100 MCG/ML) 10ML SYG (18:44)
[2019-02-28] MEDS ORDERED: HYDROCODONE/APAP (5/325) TAB PO (19:00)
[2019-02-28] MEDS: METOCLOPRAMIDE 10 MG INJ IV (19:02)
[2019-02-28] MEDS: MONTELUKAST 10 MG TAB PO (20:15)
[2019-02-28] MEDS: INSULIN GLARGINE [LANTus] (100 UNITS/ML) SYG SC (20:20)
[2019-02-28] MEDS: NIACIN (SR) 250 MG CAP PO (20:36)
[2019-02-28] MEDS: ATORVASTATIN 80 MG TAB PO (20:36)
[2019-02-28] MEDS ORDERED: NIACIN (ER) 500 MG TAB PO (21:00)
== END 2019-02-28 20:30 | disposition left against medical advice (07) | DRG 638 ==
LOC: E/R 04:53 → ICU 06:21
PROVIDERS: Family Medicine
PROC: 0DB58ZX Excision of Esophagus, Via Natural or Artificial Opening Endoscopic, Diagnostic (ICD-10-PCS; principal; 2019-02-28 17:12)
PROC: 0DB68ZX Excision of Stomach, Via Natural or Artificial Opening Endoscopic, Diagnostic (ICD-10-PCS; 2019-02-28 17:12)
DX: E11.10 Type 2 diabetes mellitus with ketoacidosis without coma (principal); K22.10 Ulcer of esophagus without bleeding; E11.43 Type 2 diabetes mellitus with diabetic autonomic (poly)neuropathy; K31.84 Gastroparesis; E66.9 Obesity, unspecified; K76.0 Fatty (change of) liver, not elsewhere classified; E78.2 Mixed hyperlipidemia; E87.8 Other disorders of electrolyte and fluid balance, not elsewhere classified; K29.70 Gastritis, unspecified, without bleeding; Z79.4 Long term (current) use of insulin; Z68.32 Body mass index [BMI] 32.0-32.9, adult
CPT/HCPCS: 36415; 71045; 74176; 80048; 80053; 80061; 80307; 81001; 81025; 82150; 82803; 82962; 83036; 83690; 83735; 84100; 84478; 84484; 84681; 85025; 87040-91; 87081; 87086; 88305; 88312; 88313; 93005; 96374; 96375; 99285-25

== ENCOUNTER 2019-05-23 14:55 | Inpatient (IN) | payer OTHER ==
[2019-05-23] MEDS: IPRATROPIUM (NEB) 0.5 MG/2.5 ML AMP HHN (15:29)
[2019-05-23] MEDS: ALBUTEROL 0.083% (NEB) 2.5 MG/3 ML AMP HHN ×2 (15:29→19:38)
[2019-05-23] MEDS: ONDANSETRON 4 MG INJ IV ×2 (15:36→21:58)
[2019-05-23] MEDS: HYDROmorphONE 2 MG/ML SYG IV ×2 (15:38→17:18)
[2019-05-23] MEDS: SODIUM CHLORIDE 0.9% 1L BAG IV* (15:39)
[2019-05-23] MEDS: ACETAMINOPHEN 325 MG TAB PO (15:40)
[2019-05-23] MEDS: CEFTRIAXONE 1 GM/50 ML (PMX) 50 ML IVPB (15:40)
[2019-05-23 16:03] LABS: INR 1.09; PROTIME 14.2 Sec (11.9-14.9); PT RATIO 1.1
[2019-05-23 16:04] LABS: PARTIAL THROMBOPLASTIN TIME 35.7 Sec (23.0-35.0)
[2019-05-23 16:07] LABS: ABNORMAL IP MESSAGE 1; HEMATOCRIT 44.3 % (37.0-47.0); HEMOGLOBIN 16.2 g/dl (12.0-16.0); MEAN CORPUSCULAR HGB CONC 36.6 g/dl (32.0-37.0); MEAN CORPUSCULAR VOLUME 84.9 fl (82.0-101.0); MEAN PLATELET VOLUME 9.8 fl (7.4-10.4); RED BLOOD COUNT 5.22 10^6/ul (4.20-5.40); RED CELL DISTRIBUTION WIDTH 13.2 % (11.5-14.5)
[2019-05-23 16:08] LABS: POSITIVE DIFF @See below
[2019-05-23 16:09] LABS: ADD MAN DIFF? YES
[2019-05-23 16:11] LABS: PLATELET COUNT 448 10^3/UL (140-415)
[2019-05-23 16:12] LABS: WHITE BLOOD COUNT 15.9 10^3/ul (4.8-10.8)
[2019-05-23 16:15] LABS: LACTATE DEHYDROGENASE 509 IU/L (313-618)
[2019-05-23 16:15] LABS: LIPASE 41 U/L (23-300)
[2019-05-23 16:16] LABS: ALANINE AMINOTRANSFERASE 37 IU/L (13-69); ALBUMIN 3.9 g/dl (3.3-4.9); ALKALINE PHOSPHATASE 157 IU/L (42-121); ASPARTATE AMINO TRANSFERASE 37 IU/L (15-46); BILIRUBIN,INDIRECT 0.4 mg/dl (0-1.1); BILIRUBIN,TOTAL 0.4 mg/dl (0.2-1.3); BLOOD UREA NITROGEN 24 mg/dl (7-20); CALCIUM 9.5 mg/dl (8.4-10.2); CHLORIDE 93 mmol/L (97-110); CREATININE 1.07 mg/dl (0.44-1.00); Estimated GFR 58 mL/min (>60); SODIUM 130 mmol/L (135-144); TOTAL PROTEIN 8.9 g/dl (6.1-8.1)
[2019-05-23 16:17] LABS: ALBUMIN/GLOBULIN RATIO 0.78
[2019-05-23 16:27] LABS: TROPONIN-I < 0.012 ng/ml (0.000-0.120)
[2019-05-23 16:39] LABS: EOSINOPHILS % (M) 3 % (0-7); LYMPHOCYTES #M 6.6 10^3/ul (0.8-2.9); LYMPHOCYTES % (M) 42 % (15-51); MONOCYTE #M 0.4 10^3/ul (0.3-0.9); MONOCYTES % (M) 3 % (0-11); PLATELET ESTIMATE INCREASED; SEGMENTED NEUTROPHILS (M) % 52 % (39-77)
[2019-05-23 16:48] LABS: ANION GAP 32 (5-13); CARBON DIOXIDE < 5 mmol/L (21-31); GLUCOSE 623 mg/dl (70-220)
[2019-05-23] MEDS ORDERED: NS + KCL 40 MEQ 1,000 ML IV (16:52)
[2019-05-23] MEDS ORDERED: DEXTROSE 10%/0.45% NACL 1,000 ML IV (16:52)
[2019-05-23] MEDS ORDERED: D10/0.45% NACL + KCL 40 MEQ 1,000 ML IV (16:52)
[2019-05-23] MEDS ORDERED: DEXTROSE 50% 50 ML SYRINGE IV ×2 (17:00)
[2019-05-23] MEDS: LACTATED RINGER'S 850 ML IV (17:17)
[2019-05-23] MEDS: INSULIN REGULAR, HUMAN 100 UNIT in SOD CHLORIDE 0.9% 100 ML IV (17:37)
[2019-05-23] MEDS: SOD CHLORIDE 0.9% 1,000 ML IV (17:38)
[2019-05-23] MEDS: NS + KCL 30 MEQ 1,000 ML IV ×2 (17:56→21:39)
[2019-05-23 18:07] LABS: AADO2 Venous 88.1 mmHg; MODE ROOM AIR; MetHgb Venous 0.4 %; Sample Type Blood venous; Site OTHER; Venous COHb 0.2 %; Venous Fraction OxyHgb 73.3 %; Venous Oxygen Sat 73.7 mmHG (55.0-75.0); Venous Total Hemglobin 10.4 g/dl
[2019-05-23 19:49] LABS: ADD UMIC YES; UR ASCORBIC ACID NEGATIVE (NEGATIVE); UR BILIRUBIN (Dip) NEGATIVE (NEGATIVE); UR BLOOD (Dip) 2+ mg/dL (NEGATIVE); UR CLARITY CLEAR (CLEAR); UR COLOR STRAW (YELLOW); UR GLUCOSE (Dip) 3+ mg/dL (NEGATIVE); UR KETONES (Dip) 2+ mg/dL (NEGATIVE); UR LEUKOCYTE ESTERASE (Dip) NEGATIVE Leu/ul (NEGATIVE); UR NITRITE (Dip) NEGATIVE (NEGATIVE); UR RBC 3 /HPF (0-5); UR SPECIFIC GRAVITY (Dip) 1.017 (1.003-1.030); UR SQUAMOUS EPITHELIAL CELL FEW /HPF (FEW); UR TOTAL PROTEIN (Dip) 2+ mg/dl (NEGATIVE); UR UROBILINOGEN (Dip) NEGATIVE (NEGATIVE); UR WBC 3 /HPF (0-5)
[2019-05-23 19:53] LABS: ANION GAP 28 (5-13); BLOOD UREA NITROGEN 22 mg/dl (7-20); CALCIUM 8.5 mg/dl (8.4-10.2); CHLORIDE 104 mmol/L (97-110); CREATININE 1.04 mg/dl (0.44-1.00); Estimated GFR 60 mL/min (>60); MAGNESIUM 1.7 mg/dl (1.7-2.5); PHOSPHORUS 4.2 mg/dl (2.5-4.9); POTASSIUM 4.6 mmol/L (3.5-5.1); SODIUM 137 mmol/L (135-144)
[2019-05-23 20:03] LABS: AMPHETAMINE/METHAMPHETAMINE Negative (NEGATIVE); BARBITURATES Positive (NEGATIVE); BENZODIAZEPINES Negative (NEGATIVE); CANNABINOIDS Negative (NEGATIVE); COCAINE Negative (NEGATIVE)
[2019-05-23 20:06] LABS: LACTIC ACID 2.8 mmol/L (0.5-2.0)
[2019-05-23 20:07] LABS: CARBON DIOXIDE 5 mmol/L (21-31); GLUCOSE 536 mg/dl (70-220); OPIATES Positive (NEGATIVE)
[2019-05-23 20:37] LABS: MODE ROOM AIR; MetHgb Venous 0.1 %; Sample Type Blood venous; Site VENOUS LINE; Venous COHb 0.3 %; Venous Fraction OxyHgb 57.9 %; Venous Oxygen Sat 58.1 mmHG (55.0-75.0)
[2019-05-23] MEDS: CEFTRIAXONE 2 GM/50 ML (PMX) 50 ML IVPB (20:54)
[2019-05-23] MEDS ORDERED: ACETAMINOPHEN 325 MG TAB PO (21:30)
[2019-05-23] MEDS: LABETALOL HCL 20MG INJ IV (21:59)
[2019-05-23] MEDS: HYDROmorphONE 0.5 MG/0.5 ML SYG IV (21:59)
[2019-05-23 22:43] LABS: Estimated GFR > 60 mL/min (>60)
[2019-05-23 23:08] LABS: ANION GAP 25 (5-13); BLOOD UREA NITROGEN 21 mg/dl (7-20); CALCIUM 8.8 mg/dl (8.4-10.2); CHLORIDE 106 mmol/L (97-110); CREATININE 0.93 mg/dl (0.44-1.00); MAGNESIUM 1.7 mg/dl (1.7-2.5); PHOSPHORUS 3.5 mg/dl (2.5-4.9); POTASSIUM 4.6 mmol/L (3.5-5.1); SODIUM 139 mmol/L (135-144)
[2019-05-23 23:15] LABS: CARBON DIOXIDE 8 mmol/L (21-31); GLUCOSE 412 mg/dl (70-220)
[2019-05-24] MEDS: D10/0.45% NACL + KCL 30 MEQ 1,000 ML IV (00:26)
[2019-05-24 00:41] LABS: MODE ROOM AIR; MetHgb Venous 0.3 %; Sample Type Blood venous; Site VENOUS LINE; Venous COHb 0.3 %; Venous Fraction OxyHgb 48.4 %; Venous Oxygen Sat 48.7 mmHG (55.0-75.0)
[2019-05-24 01:28] LABS: ANION GAP 18 (5-13); BLOOD UREA NITROGEN 17 mg/dl (7-20); CALCIUM 7.4 mg/dl (8.4-10.2); CHLORIDE 109 mmol/L (97-110); CREATININE 0.75 mg/dl (0.44-1.00); Estimated GFR > 60 mL/min (>60); GLUCOSE 231 mg/dl (70-220); MAGNESIUM 1.4 mg/dl (1.7-2.5); PHOSPHORUS 1.7 mg/dl (2.5-4.9); POTASSIUM 4.6 mmol/L (3.5-5.1); SODIUM 135 mmol/L (135-144)
[2019-05-24 01:33] LABS: CARBON DIOXIDE 8 mmol/L (21-31)
[2019-05-24 01:36] LABS: LACTIC ACID 1.9 mmol/L (0.5-2.0)
[2019-05-24] MEDS: HYDROmorphONE 0.5 MG/0.5 ML SYG IV (01:52)
[2019-05-24] MEDS: NS + KCL 30 MEQ 1,000 ML IV (01:59)
[2019-05-24] MEDS: MAGNESIUM SULFATE 3 GM in DEXTROSE 5% 100 ML IVPB (02:33)
[2019-05-24] MEDS: INSULIN REGULAR, HUMAN 100 UNIT in SOD CHLORIDE 0.9% 100 ML IV (03:21)
[2019-05-24 04:48] LABS: MODE ROOM AIR; MetHgb Venous 0.1 %; Sample Type Blood venous; Site VENOUS LINE; Venous COHb 0.3 %; Venous Oxygen Sat 39.2 mmHG (55.0-75.0)
[2019-05-24] MEDS: HYDROmorphONE 1 MG/ML SYG IV ×5 (05:02→20:35)
[2019-05-24] MEDS: LABETALOL HCL 20MG INJ IV ×3 (05:19→19:53)
[2019-05-24] MEDS: ONDANSETRON 4 MG INJ IV ×3 (05:39→20:08)
[2019-05-24 05:49] LABS: HDL CHOLESTEROL 27 mg/dl (34-82)
[2019-05-24 06:10] LABS: ANION GAP 9 (5-13); BLOOD UREA NITROGEN 14 mg/dl (7-20); CALCIUM 8.4 mg/dl (8.4-10.2); CARBON DIOXIDE 18 mmol/L (21-31); CHLORIDE 113 mmol/L (97-110); CREATININE 0.64 mg/dl (0.44-1.00); Estimated GFR > 60 mL/min (>60); GLUCOSE 210 mg/dl (70-220); MAGNESIUM 2.3 mg/dl (1.7-2.5); PHOSPHORUS 1.2 mg/dl (2.5-4.9); POTASSIUM 4.8 mmol/L (3.5-5.1); SODIUM 140 mmol/L (135-144)
[2019-05-24 06:17] LABS: CHOLESTEROL > 650 mg/dl (100-200)
[2019-05-24 06:35] LABS: LIPASE 47 U/L (23-300)
[2019-05-24] MEDS ORDERED: SOD CHLORIDE 0.9% 1,000 ML IV (07:30)
[2019-05-24] MEDS ORDERED: POTASSIUM CHLORIDE 20 MEQ POWDER FOR ORAL SOLN PO ×3 (07:30)
[2019-05-24] MEDS: ACCU-CHEK XX ×3 (07:30→09:41)
[2019-05-24] MEDS ORDERED: DEXTROSE 50% 50 ML SYRINGE IV ×4 (07:30→10:30)
[2019-05-24 07:50] LABS: TRIGLYCERIDES > 1575 mg/dl (0-149)
[2019-05-24] MEDS: NS + KCL 20 MEQ 1,000 ML IV ×3 (08:19→17:24)
[2019-05-24] MEDS: CEFTRIAXONE 2 GM/50 ML (PMX) 50 ML IVPB (08:57)
[2019-05-24] MEDS: INSULIN HUMAN REGULAR 100 UNIT in SOD CHLORIDE 0.9% 99 ML IV (09:51)
[2019-05-24] MEDS ORDERED: GLUCOSE GEL 15 GRAM TUBE PO ×2 (10:30)
[2019-05-24] MEDS ORDERED: GLUCOSE GEL 15 GRAM TUBE BUCCAL (10:30)
[2019-05-24] MEDS: FISH OIL 1,000 MG CAP PO ×2 (10:30→20:07)
[2019-05-24] MEDS ORDERED: GLUCAGON 1 MG INJ IM (10:30)
[2019-05-24] MEDS: INSULIN GLARGINE [LANTus] (100 UNITS/ML) SYG SC (10:54)
[2019-05-24 10:57] LABS: BLOOD UREA NITROGEN 9 mg/dl (7-20); CHLORIDE 110 mmol/L (97-110); Estimated GFR > 60 mL/min (>60); PHOSPHORUS 1.5 mg/dl (2.5-4.9); SODIUM 136 mmol/L (135-144)
[2019-05-24] MEDS: POTASSIUM PHOSPHATE 40 MEQ in SOD CHLORIDE 0.9% 250 ML IVPB (11:16)
[2019-05-24] MEDS ORDERED: INSULIN ASPART [NOVOLOG] 3 ML PEN SC (11:30)
[2019-05-24 11:49] LABS: ANION GAP 11 (5-13); CARBON DIOXIDE 15 mmol/L (21-31)
[2019-05-24 11:50] LABS: CALCIUM 8.6 mg/dl (8.4-10.2); GLUCOSE 221 mg/dl (70-220)
[2019-05-24] MEDS: PIOGLITAZONE 30 MG TAB PO (12:54)
[2019-05-24] MEDS: FENOFIBRATE 145 MG TAB PO (12:56)
[2019-05-24] MEDS: INSULIN ASPART [NOVOLOG] 3 ML PEN SC ×4 (12:57→21:00)
[2019-05-24] MEDS: metFORMIN 850 MG TAB PO ×2 (12:59→17:28)
[2019-05-24] MEDS: DIPHENHYDRAMINE 50 MG INJ IV ×2 (14:25→20:35)
[2019-05-25] MEDS: LABETALOL HCL 20MG INJ IV ×2 (00:10→04:13)
[2019-05-25] MEDS: HYDROmorphONE 1 MG/ML SYG IV ×6 (00:18→19:59)
[2019-05-25] MEDS: ACCU-CHEK XX ×16 (01:56→23:54)
[2019-05-25] MEDS: INSULIN ASPART [NOVOLOG] 3 ML PEN SC ×5 (01:59→12:25)
[2019-05-25] MEDS: ONDANSETRON 4 MG INJ IV (03:00)
[2019-05-25] MEDS: NS + KCL 20 MEQ 1,000 ML IV (04:10)
[2019-05-25] MEDS: DIPHENHYDRAMINE 50 MG INJ IV ×3 (04:22→19:00)
[2019-05-25 05:48] LABS: MAGNESIUM 1.5 mg/dl (1.7-2.5)
[2019-05-25 05:48] LABS: PHOSPHORUS 1.7 mg/dl (2.5-4.9)
[2019-05-25 05:52] LABS: ANION GAP 15 (5-13); BLOOD UREA NITROGEN 4 mg/dl (7-20); CALCIUM 7.8 mg/dl (8.4-10.2); CARBON DIOXIDE 13 mmol/L (21-31); CHLORIDE 106 mmol/L (97-110); CREATININE 0.51 mg/dl (0.44-1.00); Estimated GFR > 60 mL/min (>60); GLUCOSE 231 mg/dl (70-220); POTASSIUM 3.8 mmol/L (3.5-5.1); SODIUM 134 mmol/L (135-144)
[2019-05-25] MEDS: CEFTRIAXONE 2 GM/50 ML (PMX) 50 ML IVPB (08:36)
[2019-05-25] MEDS: FAMOTIDINE 20 MG INJ IV (08:42)
[2019-05-25] MEDS: FISH OIL 1,000 MG CAP PO ×2 (09:00→21:00)
[2019-05-25] MEDS: FENOFIBRATE 145 MG TAB PO (10:04)
[2019-05-25] MEDS: metFORMIN 850 MG TAB PO ×2 (10:05→13:00)
[2019-05-25] MEDS: PIOGLITAZONE 30 MG TAB PO (10:05)
[2019-05-25] MEDS: INSULIN GLARGINE [LANTus] (100 UNITS/ML) SYG SC (10:06)
[2019-05-25] MEDS ORDERED: D10/0.45% NACL + KCL 40 MEQ 1,000 ML IV (11:07)
[2019-05-25] MEDS ORDERED: NS + KCL 40 MEQ 1,000 ML IV (11:07)
[2019-05-25] MEDS ORDERED: DEXTROSE 10%/0.45% NACL 1,000 ML IV (11:07)
[2019-05-25] MEDS ORDERED: SOD CHLORIDE 0.9% 1,000 ML IV (11:07)
[2019-05-25] MEDS: POTASSIUM PHOSPHATE 40 MEQ in SOD CHLORIDE 0.9% 250 ML IVPB (13:30)
[2019-05-25] MEDS: MAGNESIUM SULFATE 4 GM/100 ML 100 ML IVPB (13:47)
[2019-05-25] MEDS: NS + KCL 30 MEQ 1,000 ML IV (14:18)
[2019-05-25] MEDS: INSULIN REGULAR, HUMAN 100 UNIT in SOD CHLORIDE 0.9% 100 ML IV ×2 (14:23→23:54)
[2019-05-25] MEDS: D10/0.45% NACL + KCL 30 MEQ 1,000 ML IV ×2 (15:46→21:35)
[2019-05-25 16:42] LABS: ANION GAP 16 (5-13); BLOOD UREA NITROGEN 3 mg/dl (7-20); CALCIUM 7.7 mg/dl (8.4-10.2); CARBON DIOXIDE 13 mmol/L (21-31); CHLORIDE 104 mmol/L (97-110); CREATININE 0.51 mg/dl (0.44-1.00); Estimated GFR > 60 mL/min (>60); GLUCOSE 197 mg/dl (70-220); MAGNESIUM 1.8 mg/dl (1.7-2.5); PHOSPHORUS 1.8 mg/dl (2.5-4.9); POTASSIUM 3.4 mmol/L (3.5-5.1); SODIUM 133 mmol/L (135-144)
[2019-05-25 18:14] LABS: ALBUMIN 2.6 g/dl (3.3-4.9); ANION GAP 14 (5-13); BLOOD UREA NITROGEN 3 mg/dl (7-20); CALCIUM 7.7 mg/dl (8.4-10.2); CARBON DIOXIDE 13 mmol/L (21-31); CHLORIDE 106 mmol/L (97-110); CREATININE 0.51 mg/dl (0.44-1.00); GLUCOSE 193 mg/dl (70-220); PHOSPHORUS 1.7 mg/dl (2.5-4.9); POTASSIUM 3.7 mmol/L (3.5-5.1); SODIUM 133 mmol/L (135-144)
[2019-05-25 18:15] LABS: ANION GAP 13 (5-13); BLOOD UREA NITROGEN 4 mg/dl (7-20); CALCIUM 7.8 mg/dl (8.4-10.2); CARBON DIOXIDE 14 mmol/L (21-31); CHLORIDE 105 mmol/L (97-110); Estimated GFR > 60 mL/min (>60); GLUCOSE 197 mg/dl (70-220); MAGNESIUM 2.5 mg/dl (1.7-2.5); POTASSIUM 3.7 mmol/L (3.5-5.1); SODIUM 132 mmol/L (135-144)
[2019-05-25 22:27] LABS: AADO2 Venous 73.4 mmHg; MODE ROOM AIR; MetHgb Venous 0.1 %; Sample Type Blood venous; Site VENOUS LINE; Venous COHb 0.6 %; Venous Fraction OxyHgb 74.1 %; Venous Oxygen Sat 74.6 mmHG (55.0-75.0); Venous Total Hemglobin 15.7 g/dl
[2019-05-25 22:57] LABS: ANION GAP 9 (5-13); BLOOD UREA NITROGEN 3 mg/dl (7-20); CALCIUM 8.1 mg/dl (8.4-10.2); CARBON DIOXIDE 19 mmol/L (21-31); CHLORIDE 106 mmol/L (97-110); CREATININE 0.46 mg/dl (0.44-1.00); Estimated GFR > 60 mL/min (>60); GLUCOSE 138 mg/dl (70-220); MAGNESIUM 2.2 mg/dl (1.7-2.5); PHOSPHORUS 1.3 mg/dl (2.5-4.9); POTASSIUM 3.4 mmol/L (3.5-5.1); SODIUM 134 mmol/L (135-144)
[2019-05-25 23:00] LABS: ALBUMIN 3.1 g/dl (3.3-4.9); ANION GAP 9 (5-13); BLOOD UREA NITROGEN 3 mg/dl (7-20); CALCIUM 8.1 mg/dl (8.4-10.2); CARBON DIOXIDE 19 mmol/L (21-31); CHLORIDE 106 mmol/L (97-110); CREATININE 0.46 mg/dl (0.44-1.00); GLUCOSE 140 mg/dl (70-220); PHOSPHORUS 1.3 mg/dl (2.5-4.9); POTASSIUM 3.3 mmol/L (3.5-5.1); SODIUM 134 mmol/L (135-144)
[2019-05-26] MEDS: HYDROmorphONE 1 MG/ML SYG IV ×6 (00:24→20:51)
[2019-05-26] MEDS: ACCU-CHEK XX ×15 (01:30→20:59)
[2019-05-26] MEDS: DIPHENHYDRAMINE 50 MG INJ IV ×4 (01:36→20:50)
[2019-05-26] MEDS: D10/0.45% NACL + KCL 30 MEQ 1,000 ML IV ×2 (01:41→05:43)
[2019-05-26 02:48] LABS: Sample Type Blood venous; Venous COHb 0.1 %; Venous Fraction OxyHgb 84.1 %; Venous Oxygen Sat 84.3 mmHG (55.0-75.0); Venous Total Hemglobin 13.1 g/dl
[2019-05-26 02:49] LABS: AADO2 Venous 63.1 mmHg; MODE ROOM AIR; MetHgb Venous 0.1 %; Site VENOUS LINE
[2019-05-26 03:32] LABS: PHOSPHORUS 1.7 mg/dl (2.5-4.9)
[2019-05-26 03:32] LABS: ANION GAP 7 (5-13); BLOOD UREA NITROGEN 2 mg/dl (7-20); CALCIUM 7.9 mg/dl (8.4-10.2); CARBON DIOXIDE 21 mmol/L (21-31); CHLORIDE 106 mmol/L (97-110); CREATININE 0.41 mg/dl (0.44-1.00); Estimated GFR > 60 mL/min (>60); GLUCOSE 168 mg/dl (70-220); MAGNESIUM 1.9 mg/dl (1.7-2.5); POTASSIUM 3.4 mmol/L (3.5-5.1); SODIUM 134 mmol/L (135-144)
[2019-05-26] MEDS: INSULIN GLARGINE [LANTus] (100 UNITS/ML) SYG SC ×2 (04:41→08:45)
[2019-05-26 06:13] LABS: AADO2 Venous 61.7 mmHg; MODE ROOM AIR; MetHgb Venous 0.1 %; Sample Type Blood venous; Site VENOUS LINE; Venous COHb 0.4 %; Venous Fraction OxyHgb 83.2 %; Venous Oxygen Sat 83.6 mmHG (55.0-75.0); Venous Total Hemglobin 13.9 g/dl
[2019-05-26 06:23] LABS: ADD UMIC YES; UR ASCORBIC ACID NEGATIVE (NEGATIVE); UR BACTERIA FEW /HPF (NONE SEEN); UR BILIRUBIN (Dip) NEGATIVE (NEGATIVE); UR BLOOD (Dip) 3+ mg/dL (NEGATIVE); UR BUDDING YEAST FEW /HPF (NONE SEEN); UR CLARITY SLIGHTLY CLOUDY (CLEAR); UR COLOR YELLOW (YELLOW); UR GLUCOSE (Dip) 3+ mg/dL (NEGATIVE); UR KETONES (Dip) 2+ mg/dL (NEGATIVE); UR LEUKOCYTE ESTERASE (Dip) NEGATIVE Leu/ul (NEGATIVE); UR NITRITE (Dip) NEGATIVE (NEGATIVE); UR RBC 139 /HPF (0-5); UR SQUAMOUS EPITHELIAL CELL FEW /HPF (FEW); UR TOTAL PROTEIN (Dip) 3+ mg/dl (NEGATIVE); UR UROBILINOGEN (Dip) NEGATIVE (NEGATIVE); UR WBC 6 /HPF (0-5)
[2019-05-26 06:43] LABS: HEMOGLOBIN A1C 10.3 % (0-5.9)
[2019-05-26 06:51] LABS: LIPASE 104 U/L (23-300)
[2019-05-26 06:52] LABS: ALBUMIN 2.7 g/dl (3.3-4.9); ANION GAP 10 (5-13); BLOOD UREA NITROGEN 2 mg/dl (7-20); CALCIUM 7.6 mg/dl (8.4-10.2); CARBON DIOXIDE 17 mmol/L (21-31); CHLORIDE 105 mmol/L (97-110); GLUCOSE 161 mg/dl (70-220); POTASSIUM 3.4 mmol/L (3.5-5.1); SODIUM 132 mmol/L (135-144)
[2019-05-26] MEDS: FISH OIL 1,000 MG CAP PO ×2 (08:18→20:50)
[2019-05-26] MEDS: FENOFIBRATE 145 MG TAB PO ×2 (08:20→08:54)
[2019-05-26] MEDS: PIOGLITAZONE 30 MG TAB PO ×2 (08:20→08:54)
[2019-05-26] MEDS: CEFTRIAXONE 2 GM/50 ML (PMX) 50 ML IVPB (08:26)
[2019-05-26] MEDS: FAMOTIDINE 20 MG INJ IV (08:26)
[2019-05-26] MEDS: metFORMIN 850 MG TAB PO ×2 (08:54→17:42)
[2019-05-26] MEDS: INSULIN ASPART [NOVOLOG] 3 ML PEN SC ×3 (11:00→20:58)
[2019-05-26 13:29] LABS: ALBUMIN 2.8 g/dl (3.3-4.9); ANION GAP 10 (5-13); CALCIUM 7.6 mg/dl (8.4-10.2); CARBON DIOXIDE 17 mmol/L (21-31); CHLORIDE 105 mmol/L (97-110); CREATININE 0.41 mg/dl (0.44-1.00); GLUCOSE 172 mg/dl (70-220); PHOSPHORUS 2.3 mg/dl (2.5-4.9); POTASSIUM 4.1 mmol/L (3.5-5.1); SODIUM 132 mmol/L (135-144)
[2019-05-26 13:36] LABS: BLOOD UREA NITROGEN < 2 mg/dl (7-20)
[2019-05-26] MEDS: FLUCONAZOLE 200 MG TAB PO (16:45)
[2019-05-26] MEDS: METOCLOPRAMIDE 10 MG INJ IV (17:14)
[2019-05-26] MEDS: SODIUM PHOSPHATE 40 MEQ in SOD CHLORIDE 0.9% 250 ML IVPB (18:38)
[2019-05-26 22:53] LABS: ANION GAP 7 (5-13); BLOOD UREA NITROGEN 2 mg/dl (7-20); CALCIUM 8.2 mg/dl (8.4-10.2); CARBON DIOXIDE 20 mmol/L (21-31); CHLORIDE 108 mmol/L (97-110); CREATININE 0.44 mg/dl (0.44-1.00); Estimated GFR > 60 mL/min (>60); GLUCOSE 140 mg/dl (70-220); MAGNESIUM 1.7 mg/dl (1.7-2.5); POTASSIUM 3.6 mmol/L (3.5-5.1); SODIUM 135 mmol/L (135-144)
[2019-05-27] MEDS: METOCLOPRAMIDE 10 MG INJ IV ×5 (00:10→23:44)
[2019-05-27] MEDS: HYDROmorphONE 1 MG/ML SYG IV ×7 (01:06→23:44)
[2019-05-27] MEDS: ACCU-CHEK XX ×5 (01:06→20:36)
[2019-05-27] MEDS: DIPHENHYDRAMINE 50 MG INJ IV ×4 (03:39→21:29)
[2019-05-27] MEDS: ONDANSETRON 4 MG INJ IV (04:43)
[2019-05-27 06:17] LABS: ALBUMIN 2.6 g/dl (3.3-4.9); ANION GAP 7 (5-13); BLOOD UREA NITROGEN 2 mg/dl (7-20); CALCIUM 8.1 mg/dl (8.4-10.2); CARBON DIOXIDE 20 mmol/L (21-31); CHLORIDE 107 mmol/L (97-110); CREATININE 0.43 mg/dl (0.44-1.00); GLUCOSE 122 mg/dl (70-220); PHOSPHORUS 3.6 mg/dl (2.5-4.9); POTASSIUM 3.5 mmol/L (3.5-5.1); SODIUM 134 mmol/L (135-144)
[2019-05-27] MEDS: INSULIN ASPART [NOVOLOG] 3 ML PEN SC ×5 (07:05→20:45)
[2019-05-27] MEDS: PIOGLITAZONE 30 MG TAB PO (08:14)
[2019-05-27] MEDS: FAMOTIDINE 20 MG INJ IV (08:14)
[2019-05-27] MEDS: FENOFIBRATE 145 MG TAB PO (08:14)
[2019-05-27] MEDS: FISH OIL 1,000 MG CAP PO ×2 (08:14→20:39)
[2019-05-27] MEDS: FLUCONAZOLE 200 MG TAB PO (08:14)
[2019-05-27] MEDS: metFORMIN 850 MG TAB PO ×3 (08:14→18:23)
[2019-05-27] MEDS: INSULIN GLARGINE [LANTus] (100 UNITS/ML) SYG SC (08:20)
[2019-05-28] MEDS: ACCU-CHEK XX ×3 (02:00→11:45)
[2019-05-28] MEDS: DIPHENHYDRAMINE 50 MG INJ IV ×3 (03:46→15:35)
[2019-05-28] MEDS: HYDROmorphONE 1 MG/ML SYG IV ×3 (03:47→12:11)
[2019-05-28 05:28] LABS: ADD MAN DIFF? NO
[2019-05-28 05:31] LABS: WHITE BLOOD COUNT 5.3 10^3/ul (4.8-10.8)
[2019-05-28 05:31] LABS: BASOPHILS % 0.2 % (0.0-2.0); EOSINOPHILS # 0.1 10^3/ul (0.0-0.5); EOSINOPHILS % 1.3 % (0.0-7.0); HEMATOCRIT 36.2 % (37.0-47.0); HEMOGLOBIN 12.4 g/dl (12.0-16.0); LYMPHOCYTES # 1.8 10^3/ul (0.8-2.9); LYMPHOCYTES % 34.4 % (15.0-51.0); MEAN CORPUSCULAR HEMOGLOBIN 30.5 pg (29.0-33.0); MEAN CORPUSCULAR HGB CONC 34.3 g/dl (32.0-37.0); MEAN CORPUSCULAR VOLUME 88.9 fl (82.0-101.0); MEAN PLATELET VOLUME 9.7 fl (7.4-10.4); MONOCYTE # 0.3 10^3/ul (0.3-0.9); MONOCYTES % 4.9 % (0.0-11.0); NEUTROPHIL # 3.1 10^3/ul (1.6-7.5); PLATELET COUNT 151 10^3/UL (140-415); RED BLOOD COUNT 4.07 10^6/ul (4.20-5.40); RED CELL DISTRIBUTION WIDTH 13.3 % (11.5-14.5)
[2019-05-28 06:00] LABS: ALANINE AMINOTRANSFERASE 41 IU/L (13-69); ALBUMIN 2.5 g/dl (3.3-4.9); ALKALINE PHOSPHATASE 78 IU/L (42-121); ANION GAP 7 (5-13); ASPARTATE AMINO TRANSFERASE 32 IU/L (15-46); BILIRUBIN,INDIRECT 0.4 mg/dl (0-1.1); BILIRUBIN,TOTAL 0.4 mg/dl (0.2-1.3); BLOOD UREA NITROGEN 9 mg/dl (7-20); CALCIUM 8.3 mg/dl (8.4-10.2); CARBON DIOXIDE 21 mmol/L (21-31); CHLORIDE 107 mmol/L (97-110); CREATININE 0.53 mg/dl (0.44-1.00); Estimated GFR > 60 mL/min (>60); GLUCOSE 145 mg/dl (70-220); POTASSIUM 3.9 mmol/L (3.5-5.1); SODIUM 135 mmol/L (135-144); TOTAL PROTEIN 5.6 g/dl (6.1-8.1)
[2019-05-28] MEDS: METOCLOPRAMIDE 10 MG INJ IV ×2 (06:55→12:46)
[2019-05-28] MEDS: INSULIN ASPART [NOVOLOG] 3 ML PEN SC ×4 (07:05→11:56)
[2019-05-28] MEDS: INSULIN GLARGINE [LANTus] (100 UNITS/ML) SYG SC (07:37)
[2019-05-28] MEDS: PIOGLITAZONE 30 MG TAB PO (08:28)
[2019-05-28] MEDS: metFORMIN 850 MG TAB PO ×2 (08:28→13:18)
[2019-05-28] MEDS: FAMOTIDINE 20 MG INJ IV (08:28)
[2019-05-28] MEDS: FENOFIBRATE 145 MG TAB PO (08:28)
[2019-05-28] MEDS: FISH OIL 1,000 MG CAP PO (08:28)
[2019-05-28] MEDS ORDERED: INSULIN ASPART [NOVOLOG] 3 ML PEN SC (17:35)
[2019-05-28] MEDS ORDERED: CREON (12k-38k-60k) 1 CAP PO (17:35)
[2019-05-29 14:21] LABS: ANA SCREEN NEGATIVE (NEGATIVE)
== END 2019-05-28 17:30 | disposition home or self-care (01) | DRG 638 ==
LOC: PP2 05-25 06:54 → ICU 05-25 13:39 → E/R 14:55 → ICU 17:41
DX: E10.10 Type 1 diabetes mellitus with ketoacidosis without coma (principal); B37.41 Candidal cystitis and urethritis; K86.1 Other chronic pancreatitis; K31.84 Gastroparesis; E10.65 Type 1 diabetes mellitus with hyperglycemia; E78.5 Hyperlipidemia, unspecified; E10.43 Type 1 diabetes mellitus with diabetic autonomic (poly)neuropathy; E66.9 Obesity, unspecified; Z68.33 Body mass index [BMI] 33.0-33.9, adult; Z79.4 Long term (current) use of insulin; Z91.19 Patient's noncompliance with other medical treatment and regimen
CPT/HCPCS: 36415; 71045; 76705; 80048; 80053; 80061; 80069; 80307; 81001; 81025; 82787; 82803; 82962; 83036; 83605; 83615; 83690; 83735; 84100; 84484; 85025; 85610; 85730; 86038; 87040-91; 87081; 87086; 93005; 94640; 94664; 96365; 96375; 96376; 99285-25